=== PATIENT | male | born 1965 | race Native Hawaiian/Other Pacific Islander ===

== ENCOUNTER 2021-09-05 11:39 | Outpatient (CLI) | payer BC ==
[2021-09-05 12:12] LABS: PLATELET COUNT 244 K/uL (142-355)
[2021-09-05 12:24] LABS: POTASSIUM 4.5 mmol/L (3.6-5.2)
== END 2021-09-05 18:53 | disposition home or self-care (01) ==
LOC: CT 11:39
PROVIDERS: ATTEND Nurse Practitioner Family
DX: K85.90 Acute pancreatitis without necrosis or infection, unspecified (principal); N20.2 Calculus of kidney with calculus of ureter
CPT/HCPCS: 36415; 80053; 82150; 83690; 85027

== ENCOUNTER 2021-12-12 08:32 | Outpatient (CLI) | payer BC | END 2021-12-12 19:30 | disposition home or self-care (01) | LOC: LABW 08:32 → CT 08:32 | PROVIDERS: ATTEND Urology | DX: N28.89 Other specified disorders of kidney and ureter (principal) | CPT/HCPCS: 36415; 82565; 84520; Q9963 ==